=== PATIENT | female | born 1930 | race Caucasian/White ===

== ENCOUNTER 2018-06-03 12:45 | Outpatient (CLI) | payer MEDICARE | END 2018-06-03 12:46 | disposition home or self-care (01) | LOC: BICCT 12:45 | PROVIDERS: ATTEND Nurse Practitioner Family | DX: M47.26 Other spondylosis with radiculopathy, lumbar region (principal); M43.16 Spondylolisthesis, lumbar region; M48.061 Spinal stenosis, lumbar region without neurogenic claudication; M51.16 Intervertebral disc disorders with radiculopathy, lumbar region; M43.17 Spondylolisthesis, lumbosacral region; S32.059A Unspecified fracture of fifth lumbar vertebra, initial encounter for closed fracture | CPT/HCPCS: 72131 ==

== ENCOUNTER 2018-10-12 20:40 | Inpatient (IN) | payer MEDICARE ==
[2018-10-12] MEDS ORDERED: Ondansetron PF 4 MG/2 ML Vial ONE (21:20)
[2018-10-12] MEDS ORDERED: Morphine 4 MG/ML VIAL ONE ×2 (21:20→22:05)
[2018-10-12 21:42] LABS: #Basophils 0.1 thou/uL (0.0-0.2); #Eosinphils 0.2 thou/uL (0.0-0.7); #Lymphocytes 1.5 thou/uL (1.20-3.40); #Monocytes 0.9 thou/uL (0.11-0.59); #Neutrophils 8.8 thou/uL (1.40-6.50); %Basophils 0.5 % (0.0-1.0); %Eosinophils 1.7 % (0.0-10.0); %Lymphocytes 12.8 % (21.0-51.0); %Monocytes 8.1 % (0.0-10.0); Hemoglobin 12.8 g/dL (12.0-16.0); Mean Corpuscular HGB CONC 31.2 g/dL (32.0-36.0); Mean Corpuscular Hemoglobin 28.8 pg (27.0-31.0); Mean Corpuscular Volume 92.3 fL (78.0-98.0); Mean Platelet Volume 9.5 fL (7.4-10.4); Platelet Count 209 thou/uL (130-400); RBC Distribution Width 12.1 % (11.5-14.5); Red Blood Cell (RBC) Count 4.46 mill/uL (4.20-5.40); White Blood Cell (WBC) Count 11.4 thou/uL (4.8-10.8)
[2018-10-12 21:50] LABS: INR-International Normal Ratio 1.2; PTT 35.8 SEC (22.9-36.1); Prothrombin Time 15.5 SEC (12.0-14.7)
[2018-10-12 22:05] LABS: ALT (SGPT) 11 U/L (8-55); AST (SGOT) 25 U/L (5-34); Albumin 4.1 g/dL (3.4-4.8); Alkaline Phosphatase 80 U/L (40-150); Anion Gap 14 mmol/L (10-20); BUN (Urea Nitrogen) 23 mg/dL (9.8-20.1); Bilirubin, Total 1.1 mg/dL (0.2-1.2); CK (CPK) 91 U/L (29-168); Calc. Creatinine Clearance 0 mL/min (70-130); Calcium 9.8 mg/dL (7.8-10.44); Carbon Dioxide 24 mmol/L (23-31); Chloride 97 mmol/L (98-107); Estimated GFR-MDRD 36; Globulin 3.5 g/dL (2.4-3.5); Glucose 137 mg/dL (83-110); Potassium 4.6 mmol/L (3.5-5.1); Protein, Total 7.6 g/dL (6.0-8.3); Sodium 130 mmol/L (136-145)
--- NOTE | 2018-10-12 22:22 | RAD ---
AP AND LATERAL VIEWS LEFT FEMUR: 10/12/18 HISTORY: Fall, pain. AP and lateral views of left femur demonstrates a mildly displaced left intertrochanteric fracture ex tending from the greater trochanter along the base of the left femoral neck all the way to the latera l aspect of the lesser trochanter. IMPRESSION: Mildly displaced left intertrochanteric fracture. POS: [facility]
--- NOTE | 2018-10-12 22:23 | RAD ---
AP VIEW PELVIS: 10/12/18 HISTORY: Fall. Left sided hip pain. AP view pelvis is obtained. There is a left proximal femoral fracture with some impaction. The rest o f the pelvis is unremarkable. IMPRESSION: Proximal left femoral fracture. POS: [facility]
--- NOTE | 2018-10-12 22:25 | RAD ---
AP VIEW CHEST: 10/12/18 HISTORY: Left femoral fracture. Preoperative chest radiograph. Patient also has left shoulder pain. AP view chest demonstrates an intracardiac pacing device. Cardiomegaly and pulmonary vascular congest ion is seen. No evidence of effusions, pneumonia or pneumothorax seen. IMPRESSION: Cardiomegaly and pulmonary vascular congestion. POS: [facility]
[2018-10-12] MEDS ORDERED: Ketorolac Tromethamine 30 MG/ML VIAL ONE (22:38)
[2018-10-12] MEDS ORDERED: Ondansetron PF 4 MG/2 ML Vial IVP PRN (22:52)
[2018-10-12] MEDS ORDERED: Ondansetron ODT 4 MG TAB PO PRN (22:52)
[2018-10-12] MEDS ORDERED: Morphine 2 MG/ML SYRINGE IVP PRN (22:52)
[2018-10-12] MEDS ORDERED: hydrALAZINE 20 MG/ML VIAL SLOW IVP PRN (22:52)
[2018-10-12] MEDS ORDERED: Dextrose 50% Abboject 50 ML SYRINGE SLOW IVP PRN (22:52)
[2018-10-12] MEDS ORDERED: traMADol HCl 50 MG TAB PO PRN (22:52)
[2018-10-12] MEDS ORDERED: Dextrose 5% in Water 1,000 ML IV PRN (22:52)
[2018-10-12] MEDS ORDERED: Cyclobenzaprine 10 MG TAB PO PRN (23:32)
[2018-10-12 23:57] LABS: Troponin I 0.021 ng/mL (< 0.028)
[2018-10-13] MEDS: Sodium Chloride 0.9% 1,000 ML IV SCH ×2 (00:57→12:50)
[2018-10-13] MEDS: Acetaminophen 1,000 MG in Premix Bag 1 BAG IVPB SCH ×4 (00:57→19:26)
[2018-10-13] MEDS: traMADol HCl 50 MG TAB PO SCH ×5 (00:57→23:51)
[2018-10-13 02:08] VITALS: BMI 23.6
[2018-10-13 02:58] LABS: Bacteria/HPF 2+ HPF (None Seen); Bilirubin Negative (Negative); Blood, Urine Negative (Negative); Clarity CLOUDY (Clear); Glucose, Urine (Dipstick) Negative (Negative); Hyaline Casts/LPF 0-3 HYALINE CAST LPF (0-3 Hyaline); Leukocyte Moderate (Negative); Nitrite Negative (Negative); Pathc Cast-AUWi Flag 0.29 (0-2.49); Protein, Urine (Dipstick) Negative (Neg-Trace); RBC/HPF 0-3 HPF (0-3); Specific Gravity, Urine 1.012 (1.002-1.036); Squamous Epithelial None Seen HPF (0-3); WBC/HPF 21-50 HPF (0-3); pH, Urine 6.5 (5.0-9.0)
--- NOTE | 2018-10-13 04:23 | HP ---
DATE OF ADMISSION: 10/12/2018 ATTENDING SURGEON: Dr. Reyes. TRAUMA ACTIVATION: Not applicable. HISTORY OF PRESENT ILLNESS: Aida eRveles is an 87-year-old female who presented to [facility] Room status post fall. Per patient, she was ambulating in her kitchen, when the phone rang, she turned and caught her foot in the rug, falling, striking her left side. Patient denies head trauma or loss of consciousness. She was seen and evaluated in the emergency room and found to have an isol ated intertrochanteric hip fracture. Orthopedic Surgery was notified and Trauma Service was asked to admit. Upon my evaluation, the patient has a chief complaint of left hip pain described as a throbb ing and spastic pain rated 10/10 at its worst, improved with pain medication and rest, worsened with movement. ALLERGIES: None. HOME MEDICATIONS: Include aspirin 81 mg b.i.d., Citracal, Synthroid 25 mcg, metoprolol XL 50 mg juvencio y, potassium chloride 10 mEq daily, simvastatin 10 mg, vitamin D3, chlorthalidone 25 mg daily, omepra zole 20 mg, and oxybutynin 5 mg daily. CHRONIC MEDICAL ILLNESSES: Include hypertension; history of atrial fibrillation, status post permane nt pacemaker; TIAs; and CKD. PAST SURGICAL HISTORY: Permanent pacemaker and bunion surgery. SOCIAL HISTORY: Patient lives at home with her daughter, ambulates with the use of a walker or cane. Denies alcohol, tobacco, or illicit drug use. FAMILY HISTORY: Noncontributory in this age patient. REVIEW OF SYSTEMS: A 10-point review of systems was performed and negative except as indicated in th e HPI. Specifically, the patient denies fevers, chills, nausea, vomiting, chest pain, shortness of b reath, dizziness, weakness upon standing, syncope or presyncopal symptoms, diarrhea, constipation, ch anges to bladder habits. PHYSICAL EXAMINATION: VITAL SIGNS: Most recent vital signs, temperature 98, pulse 79, respirations 18, O2 sat 95% on room air, blood pressure 160/83. GENERAL: Elderly appearing female in no acute distress, resting in bed. HEAD: Normocephalic, atraumatic. EYES: Pupils are PERRL. Extraocular movements are intact. MOUTH: Oral mucosa is dry. NECK: Supple. Trachea is midline. There is no midline tenderness to palpation. CHEST: Atraumatic, nontender to palpation. Normal work of breathing, symmetric rise. LUNGS: Clear to auscultation bilaterally. CARDIOVASCULAR: Regular rate and rhythm. No obvious murmurs, rubs, or gallops. GASTROINTESTINAL: Abdomen is soft, nontender, nondistended. Bowel sounds are positive. MUSCULOSKELETAL: Moves all extremities x4, 5/5 strength bilaterally. NEUROLOGIC: GCS is 15 and no focal deficit is noted. LABORATORY FINDINGS: WBC 11.4, hemoglobin 12.8, hematocrit 41.1, platelet count 209,000. INR is 1.2 . Sodium 130, potassium 4.6, chloride 97, carbon dioxide 24, BUN 23, creatinine 1.39, glucose 137. AST and ALT within normal limits. Total bilirubin 1.1. Cardiac enzymes pending. Urinalysis pending . EKG: EKG with atrial fibrillation, rate controlled. Nonspecific T-wave changes. RADIOGRAPHIC FINDINGS: Chest x-ray without acute cardiopulmonary process. Chest x-ray single lead p acemaker is in place with evidence of cardiomegaly and diffuse coarse interstitial markings. X-ray o f the pelvis demonstrated a left intertrochanteric hip fracture. X-ray of the femur demonstrated the same. ASSESSMENT: 1. Status post mechanical fall, ground level. 2. Left hip fracture. 3. Acute traumatic pain. 4. History of atrial fibrillation, status post permanent pacemaker. 5. History of hypertension. 6. Chronic kidney disease, creatinine appears to be at baseline. 7. Hyponatremia, appears to be chronic in nature. 8. History of multiple transient ischemic attacks. PLAN: Admit to Trauma Services. Orthopedic surgery has been notified and will see and evaluate the patient. Tentatively plan for operative intervention tomorrow. The patient should be n.p.o. after m idnight. Gentle IV fluid hydration. Perioperative pain management with p.o. and IV analgesics. Pos toperative PT and OT. DVT and gastritis prophylaxis when appropriate. Plan of care was discussed wi th the patient and family at bedside and all questions were answered at the time of this dictation. Trauma attending has been notified of patient admission.
[2018-10-13 05:42] LABS: #Monocytes 0.8 thou/uL (0.11-0.59); #Neutrophils 9.7 thou/uL (1.40-6.50); %Basophils 0.1 % (0.0-1.0); %Eosinophils 0.2 % (0.0-10.0); %Lymphocytes 8.9 % (21.0-51.0); %Monocytes 6.9 % (0.0-10.0); %Neutrophils 83.9 % (42.0-75.0); Hemoglobin 11.7 g/dL (12.0-16.0); Mean Corpuscular HGB CONC 34.4 g/dL (32.0-36.0); Mean Corpuscular Hemoglobin 31.6 pg (27.0-31.0); Mean Corpuscular Volume 92.1 fL (78.0-98.0); Mean Platelet Volume 8.7 fL (7.4-10.4); Platelet Count 182 thou/uL (130-400); Red Blood Cell (RBC) Count 3.69 mill/uL (4.20-5.40); White Blood Cell (WBC) Count 11.6 thou/uL (4.8-10.8)
[2018-10-13 05:55] LABS: Anion Gap 12 mmol/L (10-20); BUN (Urea Nitrogen) 25 mg/dL (9.8-20.1); Calc. Creatinine Clearance 26 mL/min (70-130); Carbon Dioxide 23 mmol/L (23-31); Chloride 100 mmol/L (98-107); Estimated GFR-MDRD 36; Glucose 166 mg/dL (83-110); Magnesium 1.4 mg/dL (1.6-2.6); Phosphorus 3.7 mg/dL (2.3-4.7); Potassium 4.7 mmol/L (3.5-5.1); Sodium 130 mmol/L (136-145)
[2018-10-13] MEDS ORDERED: Magnesium 2 GM/50 ML 2 GM in Premix Bag 1 BAG IVPB SCH ×2 (07:00→10:00)
[2018-10-13] MEDS ORDERED: CEFAZOLIN 2 GM/50 ML BAG IVPB SCH (07:15)
--- NOTE | 2018-10-13 08:05 | CON ---
DATE OF CONSULTATION: 10/13/2018 CHIEF COMPLAINT: Left hip pain. HISTORY OF PRESENT ILLNESS: Ms. Reveles is an 87-year-old female who fell yesterday. She lives indepe ndently at home. She does not use a walker or cane in the house. She tripped on a rug and fell on a hardwood floor. She landed on her left side. She had immediate pain in the left hip. She was unab le to ambulate. X-rays were obtained when she arrived in the emergency department. She was found to have an intertrochanteric femur fracture. She has been admitted to the hospital. She is currently comfortable. She is resting in a hospital bed. Her family is at the bedside. ALLERGIES: None. HOME MEDICATIONS: Include aspirin, Citracal, Synthroid, metoprolol, potassium supplement, simvastati n, vitamin D3, omeprazole, oxybutynin, chlorthalidone. PAST MEDICAL HISTORY: Hypertension, atrial fibrillation, pacemaker, TIAs, chronic kidney disease. PAST SURGICAL HISTORY: Pacemaker placement, previous bunion surgery. SOCIAL HISTORY: The patient lives with her son. She ambulates well. She denies alcohol, tobacco or drug use. FAMILY MEDICAL HISTORY: Noncontributory. REVIEW OF SYSTEMS: Negative ten point review of systems currently. PHYSICAL EXAMINATION: VITAL SIGNS: Temperature is 98.0, pulse is 73, respiratory rate 18, oxygen saturation 97%, blood pre ssure is 128/76. GENERAL: She is alert and oriented, in no apparent distress. RESPIRATORY: She is breathing comfortably. CARDIOVASCULAR: Pulses palpable and regular. MUSCULOSKELETAL: The patient's left lower extremity is shortened and externally rotated. She is rhonda rovascularly intact distally. SKIN: Intact. She is able to flex and extend the foot and ankle. She has a palpable pulse. IMAGES: X-rays of the hip and pelvis demonstrated displaced intertrochanteric femur fracture. IMPRESSION: Left intertrochanteric femur fracture in an elderly female. PLAN: At this point, the patient will need surgical intervention. I have reviewed risks and benefit s of surgery with her. Goal of surgery is to promote early mobilization and prevent complications of prolonged bed rest. The patient will go to surgery for DHS fixation of her intertrochanteric fractu re. She should remain n.p.o. She will have pain control. She will have DVT prophylaxis and antibio tic prophylaxis.
[2018-10-13] MEDS ORDERED: Metoprolol Tartrate 50 MG TAB PO SCH (09:00)
[2018-10-13] MEDS: Famotidine 20 MG TAB PO SCH (09:33)
[2018-10-13] MEDS: Senokot S 8.6-50 MG TAB PO SCH ×2 (09:33→21:40)
[2018-10-13] MEDS: Polyethylene Glycol 3350 17 GM Packet PO SCH (09:33)
--- NOTE | 2018-10-13 10:55 | PRG-2 ---
DATE OF SERVICE: 10/13/2018 RESIDENT: Dr. Jaja Bryant ATTENDING: Dr. Chris Ricardo SUBJECTIVE: This is an 87-year-old female status post fall, found to have a left hip fracture. The patient reports pain is adequately controlled today. The patient has no complaints or concerns at th is time. OBJECTIVE: VITAL SIGNS: Temperature 97.8, pulse 66, respiratory 16, O2 saturation 96% on room air, BP 136/82. GENERAL: Elderly appearing female, in no acute distress, resting in bed. HEENT: Head normocephalic, atraumatic. EYES: Pupils equal, round, and reactive to light and accommodation. Extraocular movements intact. NECK: Supple, trachea midline. RESPIRATORY: Nonlabored breathing, bilateral symmetrical chest rise. CARDIOVASCULAR: Regular rate and rhythm. No murmurs, rubs, or gallops. ABDOMEN: Soft, nontender, nondistended. MUSCULOSKELETAL: Left lower extremity shortened and externally rotated. Moves all other extremities without difficulty. NEUROLOGICAL: GCS 15, nonfocal exam. PSYCHIATRIC: Normal mood and affect. LABORATORY DATA: WBCs 11.6, hemoglobin 11.7, hematocrit 34, platelets 182, sodium 130, potassium 4.7 , BUN 25, creatinine 1.37, calcium 9, phosphorus 3.7, magnesium 1.4. BNP 326.5. ASSESSMENT: 1. Status post mechanical fall. 2. Left hip fracture. 3. Acute traumatic pain. 4. History of atrial fibrillation, status post pacemaker. 5. History of hypertension. 6. Chronic kidney disease, creatinine at baseline. 7. Chronic hyponatremia. 8. History of multiple transient ischemic attacks. PLAN: Orthopedic Surgery has been consulted and seen the patient. The plan is to go to the OR today for DHS fixation of her fracture. Postoperatively, patient will participate in physical and occupat ional therapy. Incentive spirometry and pulmonary toileting will be initiated. DVT and gastrointest inal prophylaxis as indicated. We will follow up with pain management postoperatively. Plan of care discussed with the patient who is in agreement. The patient was seen and evaluated by Dr. Ricardo.
[2018-10-13] MEDS ORDERED: PHENYLEPHRINE-NS 100 MCG/ML 10 ML SYRINGE ONE (13:42)
[2018-10-13] MEDS ORDERED: PROPOFOL 200 MG/20 ML VIAL ONE (13:42)
[2018-10-13] MEDS ORDERED: CEFAZOLIN 2 GM/50 ML BAG ONE (14:33)
[2018-10-13] MEDS ORDERED: Propofol 500 MG/50 ML VIAL ONE (16:14)
[2018-10-13] MEDS ORDERED: Bupivacaine 0.75% W/DEXTROSE 8.25% 2 ML AMP ONE (16:21)
[2018-10-13] MEDS ORDERED: CEFAZOLIN/Water 2 GM/20 ML SYRINGE SLOW IVP SCH (16:45)
[2018-10-13] MEDS ORDERED: Ondansetron HCl/PF 4 MG/2 ML Vial IVP PRN (17:52)
[2018-10-13] MEDS ORDERED: Promethazine HCl 25 MG/ML VIAL IM PRN (17:52)
[2018-10-13] MEDS ORDERED: Promethazine HCl 25 MG/ML VIAL SLOW IVP PRN (17:52)
[2018-10-13] MEDS ORDERED: Fentanyl 100 MCG/2 ML VIAL ONE (18:06)
--- NOTE | 2018-10-13 19:40 | OP ---
DATE OF OPERATION: 10/13/2018 OPERATION: Left intertrochanteric femur fracture, open reduction internal fixation with dynamic hip screw. PREOPERATIVE DIAGNOSIS: Left intertrochanteric femur fracture. POSTOPERATIVE DIAGNOSIS: Left intertrochanteric femur fracture. COMPLICATIONS: None. ESTIMATED BLOOD LOSS: Minimal. SURGEON: Terence Matthews M.D. ANESTHESIA: Spinal anesthetic. IMPLANTS: Synthes dynamic hip screw, 135-degree x3 hole. INDICATIONS: Ms. Reveles fell and fractured her left proximal femur. She was indicated for fixation t o restore anatomic alignment, promote healing and prevent complications of prolonged bed rest. Risks have been reviewed. She elected to proceed with the operation. DESCRIPTION OF PROCEDURE: Ms. Reveles was identified in the preoperative holding area. Her correct ex tremity was marked. She was carried to the operating room. She was positioned supine. General anes thesia was induced. The left lower extremity was prepped and draped in sterile fashion. At this poi nt, we performed intraoperative reduction of the fracture using traction and rotation. We took x-ray s confirming this. We then made a lateral incision over the thigh. We dissected down to the fascia. The vastus lateralis was split. We then inserted a guidewire using a 135-degree guide into the sherly ter position of the femoral head. At this point, we measured our length and overdrilled the guidewir e with the triple reamer. We then proceeded to place our 90 mm screw. We placed a three-hole side p late. We placed multiple screws to the side plate. We took final x-ray images. We thoroughly irrig ated. We then closed in layers appropriately. Sterile dressing was applied. The patient was taken to the recovery room in good condition without complication.
--- NOTE | 2018-10-13 21:27 | RAD ---
TWO VIEWS LEFT HIP 10/13/18 HISTORY: Open reduction and internal fixation left proximal femoral fracture. Two intraoperative images obtained and demonstrate a dynamic compression screw in the proximal femur. Proximal and distal fracture fragments are in good anatomic alignment. IMPRESSION: Placement of surgical hardware across the proximal left femoral fracture. POS: [facility]
[2018-10-13] MEDS: CEFAZOLIN 2 GM/50 ML-DEXTROSE 2 GM in Premix Bag 1 BAG IVPB SCH (23:50)
[2018-10-14] MEDS: Acetaminophen 1,000 MG in Premix Bag 1 BAG IVPB SCH (00:21)
[2018-10-14] MEDS: Sodium Chloride 0.9% 1,000 ML IV SCH (00:22)
[2018-10-14] MEDS: CEFAZOLIN 2 GM/50 ML-DEXTROSE 2 GM in Premix Bag 1 BAG IVPB SCH (06:20)
[2018-10-14] MEDS: traMADol HCl 50 MG TAB PO SCH ×4 (06:23→23:51)
[2018-10-14] MEDS: Famotidine 20 MG TAB PO SCH (08:26)
[2018-10-14] MEDS: Senokot S 8.6-50 MG TAB PO SCH ×2 (08:26→20:44)
[2018-10-14 08:47] LABS: Band 7 % (5-11); Eosinophils 1 % (0-10); Hemoglobin 10.1 g/dL (12.0-16.0); Lymphocytes 3 % (21-51); MDiff Complete? YES; Mean Corpuscular HGB CONC 32.9 g/dL (32.0-36.0); Mean Corpuscular Volume 94.1 fL (78.0-98.0); Mean Platelet Volume 9.7 fL (7.4-10.4); Monocytes 3 % (0-10); Neutrophil 86 % (42-75); PLT Morphology Comment Appears Decreased; Platelet Count 118 thou/uL (130-400); RBC Distribution Width 12.1 % (11.5-14.5); Red Blood Cell (RBC) Count 3.25 mill/uL (4.20-5.40); White Blood Cell (WBC) Count 11.3 thou/uL (4.8-10.8)
[2018-10-14] MEDS: Acetaminophen 500 MG TAB PO SCH ×3 (09:10→20:41)
[2018-10-14] MEDS: Aspirin 81 mg Enteric Coated Tablet PO SCH ×2 (09:11→20:42)
[2018-10-14] MEDS: Polyethylene Glycol 3350 17 GM Packet PO SCH (09:12)
[2018-10-14] MEDS: Metoprolol Tartrate 50 MG TAB PO SCH (09:12)
[2018-10-14] MEDS ORDERED: Chloraseptic Spray 180 ml Bottle PO PRN (09:42)
--- NOTE | 2018-10-14 13:25 | PRG ---
DATE OF SERVICE: 10/14/2018 SUBJECTIVE: Ms. Reveles is an 87-year-old woman with history of senile dementia, Alzheimer's type. Th e patient is postoperative day #1, status post left intertrochanteric femur fracture, open reduction and internal fixation. She is complaining of some pain to her right hip just prior to activity this morning. Otherwise, she tolerates oral intake, although with poor appetite. Urinary output is adequ ate. OBJECTIVE: VITAL SIGNS: This morning includes blood pressure 111/72, pulse 67, respiratory rate is 18, temperat ure 98.2 degrees Fahrenheit, oxygen saturation is 96% on room air. HEENT: Pupils equal, round, and reactive to light and accommodation. NECK: She has no jugular venous distention noted. HEART: Reveals regular rate and rhythm, no murmurs or gallops auscultated. CHEST: Clear to auscultation bilaterally. Breathing is regular and unlabored. ABDOMEN: Soft, nontender, nondistended. EXTREMITIES: Reveal 2+ radial and pedal pulses bilaterally. No ankle edema is present. NEUROLOGIC: Reveals no focal deficits present. PERTINENT LABORATORY DATA: Today includes CBC with 11,300 white blood cells, hemoglobin and hematocr it are 10.1 and 30.6 respectively. Platelet count is 118,000. Metabolic profile: Sodium 130, potas sium is 4.7, chloride 100, bicarbonate is 23, BUN 25, creatinine is 1.37, glucose 166, magnesium 1.4. Phosphorus is 3.7. IMPRESSION: 1. Postoperative day #1, status post open reduction and internal fixation left hip fracture. 2. Acute hypomagnesemia. 3. Stable acute on chronic renal insufficiency. PLAN: 1. Optimize pain control. 2. Correct abnormal electrolytes. 3. Increase activity per physical and occupational therapy. The patient has been evaluated for poss ible discharge to swing bed versus assisted facility post-discharge.
--- NOTE | 2018-10-14 17:05 | EKG ---
Test Reason : Blood Pressure : / mmHG Vent. Rate : 090 BPM Atrial Rate : 075 BPM P-R Int : 000 ms QRS Dur : 104 ms QT Int : 390 ms P-R-T Axes : 000 081 -77 degrees QTc Int : 477 ms Undetermined rhythm Prolonged QT Abnormal ECG Confirmed by JA CAMARA ([id number]), newspaper editor managing ANNETTE FREEDMAN ([id number]) on 10/14/2018 5:04:31 PM Referred By: CHASE GODDARD Confirmed By:JA CAMARA
[2018-10-15] MEDS: Acetaminophen 500 MG TAB PO SCH ×4 (02:05→20:22)
[2018-10-15 05:56] LABS: #Eosinphils 0.4 thou/uL (0.0-0.7); #Lymphocytes 1.4 thou/uL (1.20-3.40); #Monocytes 1.3 thou/uL (0.11-0.59); #Neutrophils 6.9 thou/uL (1.40-6.50); %Basophils 0.2 % (0.0-1.0); %Eosinophils 3.7 % (0.0-10.0); %Lymphocytes 14.5 % (21.0-51.0); %Monocytes 12.7 % (0.0-10.0); Hemoglobin 8.5 g/dL (12.0-16.0); Mean Corpuscular Volume 91.3 fL (78.0-98.0); Mean Platelet Volume 10.2 fL (7.4-10.4); Platelet Count 111 thou/uL (130-400); Red Blood Cell (RBC) Count 2.75 mill/uL (4.20-5.40)
[2018-10-15 06:10] LABS: Anion Gap 10 mmol/L (10-20); BUN (Urea Nitrogen) 26 mg/dL (9.8-20.1); Calc. Creatinine Clearance 28 mL/min (70-130); Calcium 8.1 mg/dL (7.8-10.44); Carbon Dioxide 23 mmol/L (23-31); Chloride 95 mmol/L (98-107); Estimated GFR-MDRD 39; Glucose 117 mg/dL (83-110); Magnesium 1.8 mg/dL (1.6-2.6); Phosphorus 2.2 mg/dL (2.3-4.7); Potassium 3.5 mmol/L (3.5-5.1); Sodium 124 mmol/L (136-145)
[2018-10-15] MEDS: traMADol HCl 50 MG TAB PO SCH ×3 (06:46→18:11)
[2018-10-15] MEDS: Aspirin 81 mg Enteric Coated Tablet PO SCH ×2 (08:44→20:23)
[2018-10-15] MEDS: Famotidine 20 MG TAB PO SCH (08:44)
[2018-10-15] MEDS: Polyethylene Glycol 3350 17 GM Packet PO SCH (08:45)
[2018-10-15] MEDS: Metoprolol Tartrate 50 MG TAB PO SCH (08:45)
[2018-10-15] MEDS: Senokot S 8.6-50 MG TAB PO SCH ×2 (08:45→20:23)
[2018-10-15] MEDS ORDERED: Nystatin Powder 15 GM BOT TOP PRN (10:51)
[2018-10-15] MEDS ORDERED: Potassium Phosphate 30 MMOL in Sodium Chloride 0.9% 500 ML IVPB SCH (11:45)
[2018-10-15] MEDS ORDERED: Magnesium Sulfate 3 GM in Sodium Chloride 0.9% 100 ML IVPB SCH (11:45)
--- NOTE | 2018-10-15 12:58 | PRG ---
DATE OF SERVICE: 10/15/2018 SUBJECTIVE: This is an 87-year-old woman with a history of dementia, postop day #2 status post left intertrochanteric hip fracture repair. There were no acute overnight events. The patient states soren t her pain is well controlled this morning. OBJECTIVE: VITAL SIGNS: Temperature 97.2, pulse 88, respirations 20, O2 sat 94% to 95% on 2 liters nasal cannul a, and blood pressure 114/70. GENERAL: Elderly appearing female, in no acute distress, sitting in bed, eating breakfast. PULMONARY: Normal work of breathing. Symmetric rise. CARDIOVASCULAR: Regular rate and rhythm. GASTROINTESTINAL: Abdomen is soft, nontender, nondistended. MUSCULOSKELETAL: Moves all extremities x4. NEUROLOGIC: No focal deficit is noted. Mental status at baseline. LABORATORY DATA: WBC 10.0, hemoglobin 8.5, hematocrit 25.1, and platelet count 111. Sodium 124, pot assium 3.5, chloride 95, carbon dioxide 23, BUN 26, creatinine 1.30, glucose 117, phosphorus 2.2, misa cium 8.1, and magnesium 1.8. ASSESSMENT: 1. Status post mechanical fall. 2. Left intertrochanteric hip fracture, postop day #2 status post open reduction and internal fixati on. 3. Acute traumatic pain. 4. History of atrial fibrillation, status post pacemaker. 5. History of hypertension. 6. Chronic kidney disease, stable. 7. Hyponatremia, mildly worsened. 8. Acute hypomagnesemia, hypophosphatemia, and hypokalemia. 9. History of transient ischemic attack. PLAN: Replete abnormal electrolytes. Repeat labs in the a.m. Continue to encourage incentive damaris metry and pulmonary toileting. Continue mobility with PT and OT. We will place patient on a water r estriction of 1000 mL daily, but the patient may have Gatorade or other fluids. Continue pain manage ment as ordered. The patient's family at bedside states that she will not drink Ensure supplements, try Mighty Shakes. Otherwise, supportive care as ordered. Case management has visited with the [facility] ent and she has been accepted at [facility], currently awaiting insurance approval. Plan of ca re was discussed with the patient and family at bedside and all questions were answered at the time o f this dictation. The patient was seen and evaluated with Dr. Ricardo.
[2018-10-15] MEDS ORDERED: Metoprolol Tartrate 50 MG TAB PO SCH (21:15)
[2018-10-15] MEDS: Atorvastatin Calcium 10 MG TAB PO SCH (21:40)
[2018-10-15] MEDS: Calcium Carbonate + Vit D 1 TAB PO SCH (21:40)
[2018-10-15] MEDS: Nystatin Powder 15 GM BOT TOP SCH (21:41)
[2018-10-15 22:17] LABS: Anion Gap 13 mmol/L (10-20); BUN (Urea Nitrogen) 23 mg/dL (9.8-20.1); Calc. Creatinine Clearance 28 mL/min (70-130); Calcium 8.4 mg/dL (7.8-10.44); Carbon Dioxide 22 mmol/L (23-31); Chloride 96 mmol/L (98-107); Estimated GFR-MDRD 39; Glucose 141 mg/dL (83-110); Magnesium 2.3 mg/dL (1.6-2.6); Phosphorus 2.8 mg/dL (2.3-4.7); Potassium 4.1 mmol/L (3.5-5.1); Sodium 127 mmol/L (136-145)
[2018-10-16] MEDS: traMADol HCl 50 MG TAB PO SCH ×5 (00:38→22:50)
[2018-10-16] MEDS: Acetaminophen 500 MG TAB PO SCH ×4 (02:01→21:28)
[2018-10-16 04:56] LABS: Anion Gap 10 mmol/L (10-20); BUN (Urea Nitrogen) 23 mg/dL (9.8-20.1); Calc. Creatinine Clearance 32 mL/min (70-130); Calcium 8.4 mg/dL (7.8-10.44); Carbon Dioxide 25 mmol/L (23-31); Chloride 99 mmol/L (98-107); Estimated GFR-MDRD 46; Glucose 140 mg/dL (83-110); Magnesium 2.1 mg/dL (1.6-2.6); Phosphorus 3.1 mg/dL (2.3-4.7); Potassium 4.1 mmol/L (3.5-5.1); Sodium 130 mmol/L (136-145)
[2018-10-16] MEDS: Levothyroxine Sodium 125 MCG TAB PO SCH (05:16)
[2018-10-16] MEDS: Famotidine 20 MG TAB PO SCH (09:37)
[2018-10-16] MEDS: Chlorthalidone 25 MG TAB PO SCH (09:37)
[2018-10-16] MEDS: Aspirin 81 mg Enteric Coated Tablet PO SCH ×2 (09:37→21:29)
[2018-10-16] MEDS: Metoprolol Tartrate 25 MG TAB PO SCH ×2 (09:37→21:29)
[2018-10-16] MEDS: Oxybutynin 5 MG TAB PO SCH (09:37)
[2018-10-16] MEDS: Nystatin Powder 15 GM BOT TOP SCH ×2 (09:38→22:36)
[2018-10-16] MEDS: Multivitamin W/ Minerals 1 TAB PO SCH (09:39)
[2018-10-16] MEDS: Polyethylene Glycol 3350 17 GM Packet PO SCH (09:39)
[2018-10-16] MEDS: Senokot S 8.6-50 MG TAB PO SCH ×2 (09:40→22:36)
--- NOTE | 2018-10-16 14:34 | PRG ---
DATE OF SERVICE: 10/16/2018 The patient was seen with Dr. Chris Ricardo. SUBJECTIVE: Ms. Reveles is an 87-year-old female who is postop day 3 from left intertrochanteric hip fracture. She has a history of dementia. Overnight was noted to be in atrial fibrillation, slightly tachycardic rhythm that resolved when she was given her scheduled metoprolol. The patient states her pain is generally improved. She did have bacteriuria noted on admission; however, she remains afebrile. She states possibly a little bit of dysuria at times. We will repeat this, and she is waiting on insurance approval for transfer to care home facility. OBJECTIVE: VITAL SIGNS: Temperature is 97.8, blood pressure 138/77, heart rate is 84, breathing 16 times a minute. She is 96% on room air. Patient has had a bowel movement and having good urine output by diapers. GENERAL: An 87-year-old female lying in bed, family at the bedside. No acute distress. HEENT: Normocephalic, atraumatic. NECK: Trachea is midline. LUNGS: No respiratory distress. Equal rise and fall. CARDIOVASCULAR: Irregularly irregular rhythm. Rate is controlled at 84. ABDOMEN: Soft and nontender. EXTREMITIES: She is able to move all of her extremities. Has a dry dressing. SKIN: [place], warm and dry. NEUROLOGIC: At the patient's baseline, no gross deficits. She is alert. LABORATORY DATA: From today, sodium is 130, potassium is 4.1, chloride is 99, CO2 is 25, BUN is 23, creatinine is 1.12, which is improving. Glucose is 140, calcium 8.4, phosphorus is 3.1, mag of 2.1. ASSESSMENT: 1. Left intertrochanteric hip fracture, status post open reduction and internal fixation, postop day #3. 2. Acute traumatic pain, improving. 3. History of atrial fibrillation, rate controlled on metoprolol. 4. Acute on chronic hyponatremia, improving with free water restriction. 5. Chronic kidney disease which is stable. PLAN: 1. Continue to monitor electrolytes. 2. Continue free water restriction and monitor sodium as needed. Likely discharge tomorrow as sodium is back to the patient's baseline. We will only check if symptoms arise. 3. Repeat UA today for occult urinary tract infection. 4. Continue PT, OT. 5. I have encouraged IS and stopped oxygen at the bedside, the patient's SpO2 is maintaining. 6. Continue dietary supplements. 7. Continue all other supportive care. Plan was discussed with the patient's family at the bedside and can be updated as needed. Disposition should be rehab or care home facility tomorrow. The patient was seen with Dr. Ricardo. DAJUAN
[2018-10-16 19:59] LABS: Bilirubin Negative (Negative); Blood, Urine Negative (Negative); Clarity CLEAR (Clear); Glucose, Urine (Dipstick) Negative (Negative); Leukocyte Negative (Negative); Nitrite Negative (Negative); Protein, Urine (Dipstick) Negative (Neg-Trace); Specific Gravity, Urine 1.013 (1.002-1.036); pH, Urine 6.5 (5.0-9.0)
[2018-10-16] MEDS: Calcium Carbonate + Vit D 1 TAB PO SCH (21:28)
[2018-10-16] MEDS: Atorvastatin Calcium 10 MG TAB PO SCH (21:29)
[2018-10-17] MEDS: Acetaminophen 500 MG TAB PO SCH ×4 (02:46→22:01)
[2018-10-17] MEDS: Levothyroxine Sodium 125 MCG TAB PO SCH (06:04)
[2018-10-17] MEDS: traMADol HCl 50 MG TAB PO SCH ×4 (06:04→22:02)
[2018-10-17] MEDS: Aspirin 81 mg Enteric Coated Tablet PO SCH ×2 (08:35→21:55)
[2018-10-17] MEDS: Chlorthalidone 25 MG TAB PO SCH (08:35)
[2018-10-17] MEDS: Famotidine 20 MG TAB PO SCH (08:35)
[2018-10-17] MEDS: Metoprolol Tartrate 25 MG TAB PO SCH ×2 (08:35→21:55)
[2018-10-17] MEDS: Multivitamin W/ Minerals 1 TAB PO SCH (08:35)
[2018-10-17] MEDS: Oxybutynin 5 MG TAB PO SCH (08:35)
[2018-10-17] MEDS: Nystatin Powder 15 GM BOT TOP SCH ×2 (08:43→22:02)
--- NOTE | 2018-10-17 12:23 | PRG-2 ---
DATE OF SERVICE: 10/17/2018 SUBJECTIVE: Ms. Reveles is an 87-year-old female, who is postop day 4 from left intertrochanteric hip fracture. She has history of dementia and atrial fibrillation. The patient has been rate controlled with her scheduled metoprolol. Reports good pain control and is with no complaints this morning. S he is awaiting approval and transfer to senior living facility. OBJECTIVE: VITAL SIGNS: Blood pressure 145/86, pulse 88, respirations 18, O2 sat 92% on room air, temperature 9 8 degrees. GENERAL: An 87-year-old female lying in bed in no acute distress. HEENT: Normocephalic, atraumatic. NECK: Trachea is midline. LUNGS: No respiratory distress. Equal rise and fall of chest. CARDIOVASCULAR: Irregular rhythm, rate is controlled. ABDOMEN: Soft and nontender. EXTREMITIES: Moves all 4 extremities. SKIN: No lesions. No rash. NEUROLOGIC: At patient's baseline. No gross defects. LABORATORY DATA: No hematology or chemistry labs were drawn today. From yesterday, sodium was 130, potassium 4.1, chloride 99, CO2 of 25, BUN 23, creatinine 1.12, glucose 140, calcium 8.4, phosphorus 3.1, magnesium 2.1. ASSESSMENT: 1. Left intertrochanteric hip fracture, status post open reduction and internal fixation, postoperat george day #4. 2. Acute traumatic pain. 3. History of atrial fibrillation, rate controlled, on metoprolol. 4. Acute on chronic hyponatremia, improved with free water restriction. 5. Chronic kidney disease, stable. PLAN: 1. Continue monitoring electrolytes. 2. Continue free water restriction and monitoring sodium as needed. Sodium is back to baseline as o f yesterday's labs. We will recheck if symptoms arise. 3. Continue physical therapy and occupational therapy. 4. Encourage incentive spirometry. 5. Continue dietary supplements. 6. Continue all other supportive care. DISPOSITION: The patient is pending placement for rehab or senior living facility. The patient is ready for discharge on placement. This patient was seen and evaluated by Dr. Ricardo during morning rounds. Discussed plan of care with the patient, who is in agreement.
[2018-10-17] MEDS: Calcium Carbonate + Vit D 1 TAB PO SCH (21:55)
[2018-10-17] MEDS: Atorvastatin Calcium 10 MG TAB PO SCH (21:55)
[2018-10-18] MEDS: Acetaminophen 500 MG TAB PO SCH ×2 (02:02→07:49)
[2018-10-18] MEDS: traMADol HCl 50 MG TAB PO SCH ×2 (04:54→11:35)
[2018-10-18] MEDS: Levothyroxine Sodium 125 MCG TAB PO SCH (04:55)
[2018-10-18 07:33] VITALS: TEMP 97.8
[2018-10-18] MEDS: Multivitamin W/ Minerals 1 TAB PO SCH (07:50)
[2018-10-18] MEDS: Oxybutynin 5 MG TAB PO SCH (07:50)
[2018-10-18] MEDS: Aspirin 81 mg Enteric Coated Tablet PO SCH (07:50)
[2018-10-18] MEDS: Metoprolol Tartrate 25 MG TAB PO SCH (07:50)
[2018-10-18] MEDS: Chlorthalidone 25 MG TAB PO SCH (07:50)
[2018-10-18] MEDS: Famotidine 20 MG TAB PO SCH (07:50)
[2018-10-18] MEDS: Nystatin Powder 15 GM BOT TOP SCH (07:51)
[2018-10-18 12:21] VITALS: BP 151/70
--- NOTE | 2018-10-18 20:58 | DIS-2 ---
DATE OF ADMISSION: 10/12/2018 DATE OF DISCHARGE: 10/18/2018 RESIDENT: Gordon Carmichael MD ADMITTING ATTENDING: Jaden Reyes MD DISCHARGE ATTENDING: Chris Ricardo DO CONSULTATIONS: Orthopedics. PROCEDURES PERFORMED: 1. On 10/12/2018, chest x-ray. Impression: Cardiomegaly and pulmonary vascular congestion. 2. On 10/12/2018, pelvis x-ray. Impression: Proximal left femoral fracture. 3. On 10/12/2018, femur x-ray. Impression: Mildly displaced left intertrochanteric fracture. 4. On 10/13/2018, hip x-ray. Impression: Placement of surgical hardware across the proximal left f emoral fracture. 5. On 10/13/2018, left intertrochanteric femur fracture open reduction internal fixation with dynami c hip screw. PRIMARY DIAGNOSIS: Left intertrochanteric femur fracture. SECONDARY DIAGNOSES: Hypertension, atrial fibrillation, status post permanent pacemaker, transient i schemic attack, and chronic kidney disease. DISCHARGE MEDICATIONS: 1. Vitamin D 10,000 units p.o. at bedtime. 2. Multivitamin 1 tablet p.o. daily. 3. Calcium citrate with vitamin D one tablet p.o. at bedtime. 4. Simvastatin 20 mg p.o. at bedtime. 5. Omeprazole 20 mg p.o. daily. 6. Oxybutynin 5 mg p.o. daily. 7. Chlorthalidone 25 mg p.o. daily. 8. Levothyroxine 125 mcg p.o. daily. 9. Potassium chloride 10 mEq p.o. daily. 10. Nystatin one application topical b.i.d. 11. Acetaminophen 1000 mg p.o. q.6 hours, 56 tabs p.r.n. 12. Aspirin 81 mg p.o. b.i.d. 13. Metoprolol tartrate 25 mg p.o. b.i.d. 14. Tramadol p.o. q.6 hours p.r.n., 28 tabs. DISCONTINUED MEDICATIONS: Metoprolol succinate 50 mg p.o. daily. HISTORY OF PRESENT ILLNESS AND HOSPITAL COURSE: This is an 87-year-old female with past medical hist ory of atrial fibrillation with pacemaker, who presented to the ED with left intertrochanteric hip fr acture and was admitted for surgical correction of said fracture. The patient tolerated surgery well and had uncomplicated postoperative course. However, hospital stay was significant for supervision of acute on chronic hyponatremia, which improved with free water restriction and chronic kidney disea se, which was stable as well as atrial fibrillation, which was rate controlled on metoprolol. The bessie renteria recovered well from surgery with good pain control, and once case management had placement for fpc facility or inpatient rehabilitation and the patient was deemed stable for discharge, the patient was discharged to said location with plans for continued physical therapy. DISPOSITION: Stable. DISCHARGE INSTRUCTIONS: 1. Location: SNF/inpatient rehabilitation. 2. Diet: No restrictions. 3. Activity: Fall precautions. Activity as tolerated. 4. Followup: With primary care provider in 10 days, with Dr. Terence Matthews in 10 days, and with Dr. Chris Ricardo in 14 days.
--- NOTE | 2018-10-19 08:17 | EKG ---
Test Reason : Blood Pressure : / mmHG Vent. Rate : 106 BPM Atrial Rate : 107 BPM P-R Int : 000 ms QRS Dur : 094 ms QT Int : 350 ms P-R-T Axes : 000 067 -64 degrees QTc Int : 464 ms Atrial fibrillation with rapid ventricular response Abnormal ECG When compared with ECG of 12-OCT-2018 22:39, Previous ECG has undetermined rhythm, needs review Confirmed by DR. Amber TALBERT ([id number]) on 10/19/2018 8:16:48 AM Referred By: SANG Confirmed By:DR. Amber TALBERT
== END 2018-10-18 13:35 | DRG 481 ==
LOC: ERS 20:40 → SURG B 23:58
PROVIDERS: ADMIT Specialist; ATTEND Specialist
PROC: 0QS704Z Reposition Left Upper Femur with Internal Fixation Device, Open Approach (ICD-10-PCS; principal; 2018-10-13)
DX: S72.142A Displaced intertrochanteric fracture of left femur, initial encounter for closed fracture (principal); E87.1 Hypo-osmolality and hyponatremia; I48.91 Unspecified atrial fibrillation; Z95.0 Presence of cardiac pacemaker; Z86.73 Personal history of transient ischemic attack (TIA), and cerebral infarction without residual deficits; Z79.899 Other long term (current) drug therapy; Z79.82 Long term (current) use of aspirin; Z79.891 Long term (current) use of opiate analgesic; N18.9 Chronic kidney disease, unspecified; I12.9 Hypertensive chronic kidney disease with stage 1 through stage 4 chronic kidney disease, or unspecified chronic kidney disease; W01.0XXA Fall on same level from slipping, tripping and stumbling without subsequent striking against object, initial encounter; Y92.000 Kitchen of unspecified non-institutional (private) residence as the place of occurrence of the external cause; F03.90 Unspecified dementia, unspecified severity, without behavioral disturbance, psychotic disturbance, mood disturbance, and anxiety; E83.42 Hypomagnesemia; E83.39 Other disorders of phosphorus metabolism; E87.6 Hypokalemia
CPT/HCPCS: 36415; 71045; 72170; 76001; 80048; 80053; 81003; 81015; 82550; 82553; 83735; 83880; 84100; 84484; 85007; 85025; 85027; 85610; 85730; 86850; 86900; 86901; 93005; 93010; 96374; 96375; 96376; C1713; C1769; G0390; G8978-GP-CM; G8979-GP-CK; G8987-GO-CM; G8988-GO-CK; J0131; J1885; J2270; J2405; J2704; J3010; J3475; J3490; J7050; Q0162